=== PATIENT | female | born 1965 | race Hispanic/Latino ===

== ENCOUNTER 2017-03-16 14:56 | Inpatient (IN) | payer OTHER, SELFPAY ==
[~2017-03-16 14:56] MED LIST: ISOVUE-370 76%-LOCM 1 ML ONE
[2017-03-16] MEDS ORDERED: Piperacillin/Tazobactam 3.375 GM in Sodium Chloride 0.9% 100 ML IVPB SCH (19:30)
[2017-03-16 19:50] LABS: #Eosinphils 0.4 thou/uL (0.0-0.7); #Monocytes 0.7 thou/uL (0.11-0.59); #Neutrophils 5.4 thou/uL (1.40-6.50); %Basophils 0.4 % (0.0-1.0); %Eosinophils 4.2 % (0.0-10.0); %Lymphocytes 31.3 % (21.0-51.0); %Monocytes 7.7 % (0.0-10.0); %Neutrophils 56.4 % (42.0-75.0); Mean Corpuscular HGB CONC 33.5 g/dL (32.0-36.0); Mean Corpuscular Hemoglobin 28.5 pg (27.0-31.0); Mean Corpuscular Volume 85.1 fl (81.0-99.0); Mean Platelet Volume 8.7 fL (7.4-10.4); Platelet Count 313 thou/uL (130-400); RBC Distribution Width 13.3 % (11.5-14.5); Red Blood Cell (RBC) Count 4.57 mill/uL (4.20-5.40); White Blood Cell (WBC) Count 9.5 thou/uL (4.8-10.8)
[2017-03-16 20:02] LABS: Anion Gap 16 mmol/L (10-20); BUN (Urea Nitrogen) 8 mg/dL (7.0-18.7); Calc. Creatinine Clearance 0 mL/min (70-130); Calcium 9.4 mg/dL (7.8-10.44); Carbon Dioxide 21 mmol/L (22-29); Chloride 105 mmol/L (98-107); Estimated GFR-MDRD 89; Glucose 89 mg/dL (70-105); Potassium 4.8 mmol/L (3.5-5.1); Sodium 137 mmol/L (136-145)
[2017-03-16 21:17] LABS: Bilirubin Negative (Negative); Blood, Urine Negative (Negative); Clarity CLEAR (Clear); Glucose, Urine (Dipstick) Negative (Negative); Leukocyte Small (Negative); Nitrite Negative (Negative); Protein, Urine (Dipstick) Negative (Neg-Trace); Urobilinogen 0.2 mg/dL (0.2-1.0); pH, Urine 6.5 (5.0-9.0)
[2017-03-16 21:22] LABS: Bacteria/HPF 1+ HPF (None Seen); Hyaline Casts/LPF 0-3 HYALINE CAST LPF (0-3 Hyaline); RBC/HPF 0-3 HPF (0-3); Squamous Epithelial 21-50 HPF (0-3)
--- NOTE | 2017-03-16 21:30 | CT ---
EXAM: ABDOMEN CT WITH CONTRAST PELVIC CT WITH CONTRAST 03/16/17 COMPARISON: 06/24/16 HISTORY: Postop wound dehiscence. Tumor removal in [place]. TECHNIQUE: Abdomen and pelvic CT are performed with IV contrast. Enteric contrast was not administered. Coronal reformatted images are submitted for interpretation. FINDINGS: ABDOMEN CT: Lung bases are clear. There is a paraesophageal hernia with evidence of esophagus and associated para esophageal fat extending into the thoracic cavity. Heart size is normal. No pericardial effusion. The visualized aorta has a normal caliber. No periaortic fat stranding. Intra and extrahepatic portal vein is patent. Liver, spleen, pancreas, and adrenal glands have approp riate enhancement. Gallbladder is unremarkable. Symmetric enhancement of the kidneys. Mild asymmetric enhancement and periureteral fat stranding invo lving the mid to proximal right ureter. Correlate for ascending urinary tract infection. Hypodensitie s of the right and left renal cortex are too small to characterize but statistically favor to be cyst s. No mesenteric mass, lymphadenopathy, free air, or free fluid. There is straightening of the ventral s ubcutaneous fat. There is evidence of anterior abdominal wall mesenteric fat herniation. There is deh iscence of the anterior abdominal wall. A drainable abscess/fluid collection is not appreciated. Ther e is irregularity involving the dermis along the inferior midline of the abdomen. There is evidence o f subcutaneous fat stranding along the left and right anterior abdominal wall. Limited evaluation of the alimentary canal due to lack of oral contrast. Gastric mucosa, duodenum and small bowel loops are unremarkable. Ileocecal junction is normal. Scattered fecal material in a nond istended, nondilated colon. Diverticulosis, without evidence of diverticulitis. PELVIC CT: Surgically absent uterus. Hypodensity in the right adnexa may represent two ovarian cysts. Conglomera tion of this mass measures 4.5 x 3.2 cm. Nonemergent [employer]IC consultation. No pelvic lymphadenopathy, sage e air or free fluid. The urinary bladder is unremarkable. No lytic or blastic lesions in the osseous structures. IMPRESSION: 1. Ventral abdominal wall hernia with evidence of anterior abdominal wall muscular dehiscence. T here is extension of fat beyond the peritoneal lining as well as at the level of dehiscence. There is induration of the subcutaneous fat. A definite abscess is not appreciated. 2. Ulceration of the ventral dermis. 3. Right ovarian cyst is suspected. Nonemergent [employer]UM[employer]CH[employer]IC consultation. 4. Possible ascending right sided urinary tract infection with enhancement of the right ureter. Correlate with urinalysis. POS: [facility]
[2017-03-16] MEDS ORDERED: Acetaminophen 500 MG TAB ONE (22:40)
[2017-03-17] MEDS ORDERED: Acetaminophen 325 MG TAB PO PRN (00:14)
[2017-03-17] MEDS ORDERED: Ondansetron ODT 4 MG TAB SL PRN (00:14)
[2017-03-17] MEDS ORDERED: Ondansetron HCl/PF 4 MG/2 ML Vial IVP PRN ×3 (00:14→11:13)
[2017-03-17 00:35] VITALS: BMI 31.1
[2017-03-17] MEDS: Piperacillin-Tazo-Dextrose,Iso 3.375 GM in Premix Bag 1 BAG IVPB SCH ×4 (03:44→18:57)
--- NOTE | 2017-03-17 08:37 | HP ---
CHIEF COMPLAINT: Open wound abdominal wall. HISTORY OF PRESENT ILLNESS: The patient is a 52-year-old female who underwent a hysterectomy in July in [place]. This was done for a fibroid and then in January underwent an abdominoplasty in [facility] that dehisced. On she was taken back to the operating room in [place] where they pl aced some new stitches. These have eroded through and it is open again. PAST MEDICAL HISTORY: Gastroesophageal reflux, hypertension. PAST SURGICAL HISTORY: Total abdominal hysterectomy, section, abdominoplasty. MEDICATIONS: Atenolol. ALLERGIES: No known drug allergies. SOCIAL HISTORY: . No tobacco or alcohol. FAMILY HISTORY: Mother had a CVA. Heart disease runs in the family. PHYSICAL EXAMINATION: VITAL SIGNS: Temperature 97.7, pulse 68, blood pressure 120/80. GENERAL: She is a well-developed, well-nourished female in no apparent distress. HEENT: Unremarkable. LUNGS: Clear. HEART: Regular rate and rhythm. ABDOMEN: She has healing incisions from recent abdominoplasty, there was about a 6 cm opening at the midline with stitches that have pulled through. There is minimal erythema. No visible bowel. LABORATORY AND X-RAY FINDINGS: Her white count is 9.5, H&H 13 and 38, platelet count 313. Electroly emilie are fine. She had a CT showing some fascial dehiscence with prolapse of fat, no abscess. ASSESSMENT: Fascial dehiscence, chronic. PLAN: She will need to go the operating room and have the fascia repaired, irrigated out and packed open.
[2017-03-17] MEDS ORDERED: CEFAZOLIN/Water 2 GM/20 ML SYRINGE SLOW IVP SCH (09:30)
[2017-03-17] MEDS ORDERED: Bupivacaine 0.25% HCL 30 ML VIAL ONE (09:35)
[2017-03-17] MEDS ORDERED: Midazolam HCl 2 mg/2 ml Vial ONE ×2 (10:04→10:05)
[2017-03-17] MEDS ORDERED: Fentanyl 100 MCG/2 ML VIAL ONE (10:05)
[2017-03-17] MEDS ORDERED: HYDROmorphone 0.5 MG/0.5 ML SYRINGE ONE (10:06)
[2017-03-17] MEDS ORDERED: CEFAZOLIN/Water 2 GM/20 ML SYRINGE ONE (10:16)
[2017-03-17] MEDS ORDERED: Dextrose 50% Abboject 50 ML SYRINGE SLOW IVP PRN (11:01)
[2017-03-17] MEDS ORDERED: hydrALAZINE 20 MG/ML VIAL SLOW IVP PRN (11:01)
[2017-03-17] MEDS ORDERED: Dextrose 5% in Water 1,000 ML IV PRN (11:01)
[2017-03-17] MEDS ORDERED: HYDROcodone/Acetaminophen 10/325 mg Tablet PO PRN ×2 (11:01)
[2017-03-17] MEDS ORDERED: Promethazine HCl 25 MG/ML VIAL IM PRN ×2 (11:01→11:13)
--- NOTE | 2017-03-17 11:09 | OP ---
DATE OF PROCEDURE: 03/17/2017 PREOPERATIVE DIAGNOSIS: Fascial dehiscence. SURGEON: Taurus Piedra M.D. POSTOPERATIVE DIAGNOSIS: Skin dehiscence. PROCEDURE: Wound debridement. INDICATIONS: The patient is a 52-year-old female who had an abdominoplasty done in [place]. The sk in had dehisced, it was repaired down there a few days postop and now was opened again. She came to the emergency room here where a CT suggested a fascial dehiscence. FINDINGS: The fascia was all intact. The wound edges were necrotic. PROCEDURE: After informed consent was obtained, the patient was taken to the operating room and give n general mask anesthesia, placed in the supine position. Her abdomen was prepped and draped in the usual fashion. The sutures were removed. An elliptical incision was performed to excise the necroti c skin edges. The fascia was encountered. The fascia was inspected circumferentially. I did not fi nd any dehiscence of the fascia. It was all intact. Cultures were obtained. Hemostasis achieved wi th electrocautery. The wound was packed open with Betadine gauze wet to dry. Sterile bandage applie d. The patient tolerated the procedure well and transferred to recovery in good condition. Sponge a nd needle count verified correct x2.
[2017-03-17] MEDS ORDERED: Meperidine HCl/PF 25 MG/ML VIAL SLOW IVP PRN (11:13)
[2017-03-17] MEDS ORDERED: Promethazine HCl 25 MG/ML VIAL SLOW IVP PRN (11:13)
[2017-03-17] MEDS ORDERED: Morphine Sulfate 2 MG/ML SYRINGE SLOW IVP PRN (11:13)
[2017-03-17] MEDS ORDERED: Morphine 4 MG/ML VIAL SLOW IVP PRN ×2 (11:30)
[2017-03-17] MEDS ORDERED: FLU VACC QS2017-18 36 mo. & older 0.5 ML SYRINGE IM ONE (12:00)
[2017-03-17] MEDS: D5 1/2 NS w/20 mEq KCL 1,000 ML IV SCH ×2 (12:14→23:42)
[2017-03-17] MEDS ORDERED: Ondansetron HCl/PF 4 MG/2 ML Vial ONE (13:42)
[2017-03-17] MEDS ORDERED: Glycopyrrolate 0.2 MG/ML 5 ML SYRINGE ONE (13:42)
[2017-03-17] MEDS ORDERED: Dexamethasone 20 MG/5 ML VIAL ONE (13:42)
[2017-03-17] MEDS ORDERED: Lidocaine 1% PF 5 ML VIAL ONE (13:42)
[2017-03-17] MEDS ORDERED: Ketorolac Tromethamine 30 MG/ML VIAL ONE (13:42)
[2017-03-17] MEDS ORDERED: Propofol 200 MG/20 ML VIAL ONE (13:42)
[2017-03-17] MEDS ORDERED: Cepastat Lozenges 1 LOZ PO PRN ×2 (16:08→16:09)
[2017-03-17] MEDS: Famotidine 20 MG TAB PO SCH (21:32)
[2017-03-17] MEDS: Famotidine/PF 20 mg/2ml Vial SLOW IVP SCH (21:34)
[2017-03-18] MEDS: Piperacillin-Tazo-Dextrose,Iso 3.375 GM in Premix Bag 1 BAG IVPB SCH ×2 (00:07→05:13)
[2017-03-18] MEDS: D5 1/2 NS w/20 mEq KCL 1,000 ML IV SCH (05:12)
[2017-03-18 06:38] LABS: #Lymphocytes 1.9 thou/uL (1.20-3.40); #Monocytes 0.9 thou/uL (0.11-0.59); #Neutrophils 14.1 thou/uL (1.40-6.50); %Basophils 0.1 % (0.0-1.0); %Eosinophils 0.2 % (0.0-10.0); %Lymphocytes 11.1 % (21.0-51.0); %Monocytes 5.4 % (0.0-10.0); %Neutrophils 83.2 % (42.0-75.0); Mean Corpuscular HGB CONC 32.5 g/dL (32.0-36.0); Mean Corpuscular Hemoglobin 28.1 pg (27.0-31.0); Mean Corpuscular Volume 86.5 fl (81.0-99.0); Mean Platelet Volume 8.8 fL (7.4-10.4); Platelet Count 354 thou/uL (130-400); Red Blood Cell (RBC) Count 4.27 mill/uL (4.20-5.40); White Blood Cell (WBC) Count 16.9 thou/uL (4.8-10.8)
[2017-03-18 06:57] LABS: Anion Gap 12 mmol/L (10-20); BUN (Urea Nitrogen) 8 mg/dL (7.0-18.7); Calc. Creatinine Clearance 118 mL/min (70-130); Calcium 9.5 mg/dL (7.8-10.44); Carbon Dioxide 24 mmol/L (22-29); Chloride 105 mmol/L (98-107); Estimated GFR-MDRD 83; Glucose 137 mg/dL (70-105); Potassium 4.2 mmol/L (3.5-5.1); Sodium 137 mmol/L (136-145)
[2017-03-18] MEDS: Famotidine 20 MG TAB PO SCH (08:24)
[2017-03-18 08:52] VITALS: BP 136/82
[2017-03-18] MEDS ORDERED: Enoxaparin Sodium 40 MG/0.4 ML SYRINGE SC SCH (09:00)
[2017-03-18] MEDS: Famotidine/PF 20 mg/2ml Vial SLOW IVP SCH (11:35)
--- NOTE | 2017-03-18 11:46 | DIS ---
DISCHARGE DIAGNOSIS: Wound dehiscence. HOSPITAL COURSE: The patient was admitted through the ER, CT scan suggested not just skin dehiscence but fascial dehiscence with prolapsing fat from intra-abdominal, so she was taken to the operating r oom and underwent a wound debridement and exploration. She was found to have intact fascia. The wou nd was packed open and she is now discharged home in good condition on hydrocodone. She will have da asya dressing changes. She will follow up with me in 2 weeks.
[2017-03-18 12:11] VITALS: TEMP 98.1
== END 2017-03-18 13:33 | disposition home or self-care (01) | DRG 921 ==
LOC: ERS 14:56 → SJJU 22:09 → OBSVTOIN 22:09 → ERS 23:28
PROVIDERS: ADMIT Surgery; ATTEND Surgery
PROC: 0HB7XZZ Excision of Abdomen Skin, External Approach (ICD-10-PCS; principal; 2017-03-17)
DX: T81.31XA Disruption of external operation (surgical) wound, not elsewhere classified, initial encounter (principal); F32.9 Major depressive disorder, single episode, unspecified; I10 Essential (primary) hypertension; K21.9 Gastro-esophageal reflux disease without esophagitis; Z90.710 Acquired absence of both cervix and uterus
CPT/HCPCS: 36415; 74177; 80048; 81003; 81015; 85025; 87070; 87205; J0131; J1100; J1170; J1650; J1885; J2001; J2250; J2405; J2543; J2704; J3010; J7050; Q0162; S0020

== ENCOUNTER 2017-03-28 10:29 | Outpatient (CLI) | payer SELFPAY ==
--- NOTE | 2017-03-28 12:56 | HP ---
DATE OF SERVICE: 03/28/2017 HISTORY OF PRESENT ILLNESS: Ms. Jeannine Dailey is a very pleasant 52-year-old accompanied by her daughter who presents to the Wound Center for evaluation of a nonhealing surgical wound of the lower abdomen subsequent to abdominoplasty in [place] on 02/07/2017. The patient is Sami speaking only. The patient' s daughter states that after abdominoplasty on 02/07/2017 for an infectious process associated with the wound. The patient underwent debridement in the office in 02/2017. At this time, the patient's daughter states the wound was closed primarily and the patient presented to the Emergency Department here at [facility] for evaluation of dehiscence of her abdominal incision. CT scan suggested a fascial dehiscence and the patient was taken to the operating room on 03/17/2017. At the time of surgery, the fascia was noted to be intact and the patient underwent debridement of the wound by Dr. Piedra. The wound was left open to heal by secondary intention and Ms. Dailey was referred to the Wound Center for assistance with wet to dry dressing changes. PAST MEDICAL HISTORY: 1. Gastroesophageal reflux disease. 2. Hypertension. PAST SURGICAL HISTORY: 1. Total abdominal hysterectomy. 2. x2. 3. Abdominoplasty. 4. Intraoperative debridement of lower abdominal wound on 03/17/[address] Piedra as per HPI. MEDICATIONS: Atenolol. ALLERGIES: No known diagnosed allergies. SOCIAL HISTORY: Negative for tobacco or ETOH use. FAMILY HISTORY: Significant for diabetes mellitus. The patient states that she has one sister and one brother who were diagnosed with diabetes mellitus. PHYSICAL EXAMINATION: VITAL SIGNS: Temperature 97.8, pulse 87, respirations 19, blood pressure 135/ 87. GENERAL: A 52-year-old female sitting on chair in examination room in no acute distress. HEENT: Normocephalic, atraumatic. NECK: No nuchal rigidity. CHEST: Clear to auscultation. CARDIAC: Regular rate and rhythm. ABDOMEN: Soft. A lower abdominal wound is present which measures approximately 7.0 x 3.0 cm. The transverse wound is granulating. Necrotic and nonviable tissue present within the wound margins was debrided with an excisional full-thickness debridement with the use of scissors. No purulent drainage is associated with the wound. No erythema of the skin surrounding the wound is present. No maceration of the skin of the periwound is noted. EXTREMITIES: No clubbing or cyanosis. NEUROLOGIC: Grossly nonfocal. ASSESSMENT AND PLAN: 1. Transverse wound of the lower abdomen as described above. Wet to dry dressing changes are to be performed on a daily basis after cleansing and irrigation as per Dr. Piedra. The patient's daughter will be instructed in regard to the wet to dry dressing changes. The patient's daughter states that Ms. Dailey has a followup appointment with Dr. Piedra. I will also see Ms. Dailey again in 1 week. No antibiotics will be prescribed today based upon the appearance of the wound. 2. Gastroesophageal reflux disease. 3. Hypertension. MTDD
[2017-03-28] MEDS ORDERED: Lidocaine 2% Jelly 5 ML TUBE ONE (13:31)
[2017-03-28] MEDS ORDERED: Sodium Chloride 0.9% 15 ML NEB ONE (13:31)
== END 2017-03-28 10:30 | disposition home or self-care (01) ==
LOC: WCC 10:29
PROVIDERS: ATTEND Family Medicine
DX: S31.109D Unspecified open wound of abdominal wall, unspecified quadrant without penetration into peritoneal cavity, subsequent encounter (principal)
CPT/HCPCS: 11042; 11045; 99204; A4218; G0463

== ENCOUNTER 2017-04-04 09:40 | Outpatient (CLI) | payer OTHER ==
--- NOTE | 2017-04-04 12:06 | PRG ---
DATE OF SERVICE: 04/04/2017 HISTORY: Ms. Jeannine Dailey is a very pleasant 52-year-old accompanied by her daughter who presents to the Wound Center for evaluation of a nonhealing surgical wound of the lower abdomen, subsequent to abdominoplasty in [place] on 02/07/2017. The patient is Lao speaking only. The patient's daug hter previously stated that after abdominoplasty on 02/07/2017 for an infectious process associated w ith the wound, the patient underwent debridement in the office in 02/2017. At this time, the patient 's daughter stated, the wound was closed primarily and the patient presented to the Emergency Departm ent here at [facility] for evaluation of dehiscence of her abdominal incision. CT scans suggested a fascial dehiscence and the patient was taken to the operating room on 03/17/19. At the time of surgery, the fascia was noted to be intact. The patient underwent debridement of the wound by Dr. Piedra. The wound was left open to heal by secondary intention and Ms. Dailey was r eferred to the Wound Center for assistance with wet to dry dressing changes. Since the patient's vis it on 03/28/2017 the patient has been receiving wet to dry dressing changes on a daily basis after cl eansing and irrigation with the assistance of her daughter. PHYSICAL EXAMINATION: VITAL SIGNS: Temperature 97.5, pulse 77, respirations 18, blood pressure 136/87. ABDOMEN: Soft. A lower abdominal wound is present which measures approximately 5.5 x 2.5 cm. The d imensions of the wound at the time of the patient's visit on 03/28/2017 were approximately 7.0 x 3.0 cm. The transverse wound is granulating. Nonviable tissue present within the wound margins was debr ided with an excisional full-thickness debridement. No purulent drainage is associated with the woun d. No erythema of the skin surrounding the wound is present. No maceration of the skin of the periw ound is noted. ASSESSMENT AND PLAN: 1. Transverse wound of the lower abdomen as described above. Wet to dry dressing changes will be co ntinued on a daily basis after cleansing and irrigation as per Dr. Piedra. The patient's daughter has been assisting Ms. Dailey with her dressing changes. The patient has a followup appointment with Dr Kate Piedra later today. I will see Ms. Dailey again in 2 weeks. 2. Gastroesophageal reflux disease. 3. Hypertension.
[2017-04-04] MEDS ORDERED: Sodium Chloride 0.9% 15 ML NEB ONE (17:09)
== END 2017-04-04 09:41 | disposition home or self-care (01) ==
LOC: WCC 09:40
PROVIDERS: ATTEND Family Medicine
DX: T81.89XD Other complications of procedures, not elsewhere classified, subsequent encounter (principal); K21.9 Gastro-esophageal reflux disease without esophagitis; I10 Essential (primary) hypertension; Z98.84 Bariatric surgery status
CPT/HCPCS: 11042; A4218

== ENCOUNTER 2017-04-25 10:41 | Outpatient (CLI) | payer OTHER ==
[2017-04-25] MEDS ORDERED: Sodium Chloride 0.9% 15 ML NEB ONE (11:11)
--- NOTE | 2017-04-25 12:31 | PRG ---
DATE OF SERVICE: 04/25/2017 HISTORY: Ms. Jeannine Dailey is a very pleasant 52-year-old accompanied by her daughter who presents to the Wound Center for evaluation of a nonhealing surgical wound of the lower abdomen subsequent to abdominoplasty in [place] on 02/07/2017. The patient is Russian-speaking only. The patient's daughter previously stated that after abdominoplasty on 02/07/2017, for an infectious process associated with the wound, the patient underwent debridement in the office in 02/2017. At this time, the patient's daughter stated, the wound was closed primarily, and the patient presented to the Emergency Department here at [facility] for evaluation of dehiscence of her abdominal incision. CT scan suggested fascial dehiscence, and patient was taken to the operating room on 03/17/2017. At the time of surgery, the fascia was noted to be intact. The patient underwent debridement of the wound by Dr. Piedra. The wound was left open to heal by secondary intention, and Ms. Dailey was referred to the Wound Center for assistance with wet to dry dressing changes. Since the patient's visit on 04/04/2017, the patient has been receiving wet to dry dressing changes on a daily basis after cleansing and irrigation with the assistance of her daughter. PHYSICAL EXAMINATION: VITAL SIGNS: Temperature 98.1, pulse 78, respirations 18, blood pressure 150/ 78. ABDOMEN: Soft. A lower abdominal wound is present which measures approximately 2.8 x 1.3 cm. The dimensions of the wound at the time of the patient's visit on 04/04/2017 were approximately 5.5 x 2.5 cm. The transverse wound is granulating. Nonviable tissue present within the wound margins was debrided with an excisional full-thickness debridement. No purulent drainage is associated with the wound. No erythema of the skin surrounding the wound is present. No maceration of the skin of the periwound is noted. ASSESSMENT AND PLAN: 1. Transverse wound of the lower abdomen as described above. Wet to dry dressing changes will be continued on a daily basis after cleansing and irrigation as per Dr. Piedra. The patient's daughter will continue to assist Ms. Dailey with her dressing changes. I will see Ms. Dailey again in 2 weeks. 2. Gastroesophageal reflux disease. 3. Hypertension. MTDD
== END 2017-04-25 10:42 | disposition home or self-care (01) ==
LOC: WCC 10:41
PROVIDERS: ATTEND Family Medicine
DX: S31.109D Unspecified open wound of abdominal wall, unspecified quadrant without penetration into peritoneal cavity, subsequent encounter (principal); K21.9 Gastro-esophageal reflux disease without esophagitis; I10 Essential (primary) hypertension
CPT/HCPCS: 11042; A4218

== ENCOUNTER 2017-05-02 15:36 | Emergency (ER) | payer OTHER, SELFPAY ==
[2017-05-02 16:00] LABS: #Basophils 0.1 thou/uL (0.0-0.2); #Eosinphils 0.1 thou/uL (0.0-0.7); #Lymphocytes 2.6 thou/uL (1.20-3.40); #Monocytes 0.3 thou/uL (0.11-0.59); #Neutrophils 2.3 thou/uL (1.40-6.50); %Basophils 1.1 % (0.0-1.0); %Eosinophils 2.7 % (0.0-10.0); %Lymphocytes 47.7 % (21.0-51.0); %Neutrophils 42.5 % (42.0-75.0); Hemoglobin 15.5 g/dL (12.0-16.0); Mean Corpuscular HGB CONC 33.6 g/dL (32.0-36.0); Mean Corpuscular Hemoglobin 28.2 pg (27.0-31.0); Mean Platelet Volume 8.9 fL (7.4-10.4); Platelet Count 342 thou/uL (130-400); RBC Distribution Width 13.1 % (11.5-14.5); Red Blood Cell (RBC) Count 5.47 mill/uL (4.20-5.40); White Blood Cell (WBC) Count 5.4 thou/uL (4.8-10.8)
[2017-05-02 16:10] LABS: BHCG - Serum Negative (NEGATIVE); Pregs Control Background? CLEAR/WHITE (CLR/WHITE); Pregs Control Bar Appear? YES (CONTROL BAR)
[2017-05-02 16:22] LABS: ALT (SGPT) 19 U/L (8-55); AST (SGOT) 23 U/L (5-34); Albumin 4.5 g/dL (3.5-5.0); Alkaline Phosphatase 94 U/L (40-150); Anion Gap 13 mmol/L (10-20); BUN (Urea Nitrogen) 10 mg/dL (7.0-18.7); Bilirubin, Total 0.2 mg/dL (0.2-1.2); CK (CPK) 39 U/L (29-168); Calc. Creatinine Clearance 0 mL/min (70-130); Carbon Dioxide 26 mmol/L (22-29); Chloride 100 mmol/L (98-107); Estimated GFR-MDRD 79; Globulin 3.8 g/dL (2.4-3.5); Glucose 137 mg/dL (70-105); Potassium 3.4 mmol/L (3.5-5.1); Protein, Total 8.3 g/dL (6.0-8.3); Sodium 136 mmol/L (136-145)
[2017-05-02 16:25] LABS: CKMB 0.4 ng/mL (0-6.6); Troponin I Less than 0.010 ng/mL (< 0.028)
[2017-05-02] MEDS ORDERED: Ketorolac Tromethamine 60 MG/2 ML VIAL ONE (17:12)
--- NOTE | 2017-05-02 17:29 | RAD ---
AP CHEST: Indication: Tachycardia. High blood pressure. IMPRESSION: No acute cardiopulmonary abnormalities. Low lung volumes. The examination does not appear significant ly changed from comparison of 10-26-16. POS: [facility]
== END 2017-05-02 17:17 | disposition home or self-care (01) ==
LOC: ERS 15:36
DX: R00.2 Palpitations (principal); D64.9 Anemia, unspecified; I10 Essential (primary) hypertension; F32.9 Major depressive disorder, single episode, unspecified; Z79.899 Other long term (current) drug therapy
CPT/HCPCS: 36415; 71045; 80053; 82550; 82553; 84484; 84703; 85025; 93005; 96372; J1885

== ENCOUNTER 2017-10-05 15:00 | Emergency (ER) | payer SELFPAY ==
--- NOTE | 2017-10-05 15:39 | RAD ---
RADIOGRAPH LEFT SHOULDER 3 VIEWS: DATE: 10/05/17. HISTORY: A 52-year-old female status post acute traumatic injury to the left shoulder. FINDINGS: There is no fracture or dislocation. IMPRESSION: Negative. POS: [facility]
--- NOTE | 2017-10-05 15:40 | RAD ---
LEFT ELBOW 4 VIEWS: HISTORY: Injury. COMPARISON: None. FINDINGS: No fracture. No malalignment. No significant joint effusion. IMPRESSION: No acute abnormality. POS: [facility]
[2017-10-05] MEDS ORDERED: HYDROcodone/Acetaminophen 10/325 mg Tablet ONE (16:29)
--- NOTE | 2017-10-05 16:47 | RAD ---
LEFT FOREARM TWO VIEW 10/05/17 HISTORY: Pain. Fall. Trauma. COMPARISON: None. FINDINGS: The forearm is intact. IMPRESSION: Intact forearm. Minimal dorsal soft tissue edema. POS: [facility]
--- NOTE | 2017-10-05 16:47 | RAD ---
LEFT HUMERUS TWO VIEW: 10/05/17 HISTORY: Pain. Fall. COMPARISON: None. FINDINGS: The humerus is intact. IMPRESSION: No acute fracture of the humerus. POS: [facility]
== END 2017-10-05 17:38 | disposition home or self-care (01) ==
LOC: ERS 15:00
DX: S40.022A Contusion of left upper arm, initial encounter (principal); I10 Essential (primary) hypertension; D64.9 Anemia, unspecified; Z79.899 Other long term (current) drug therapy; W22.8XXA Striking against or struck by other objects, initial encounter